=== PATIENT | female | born 1945 | race Two or more races ===

== ENCOUNTER → 2024-09-03 | Outpatient (CLI) | payer MEDICARE, MEDICAID, SELFPAY ==
--- NOTE | 2024-09-03 13:20 | XR_ITS ---
Examination: Bone densitometry Date and time of exam:September 03, 2024 1049 hours INDICATIONS: Menopause age 36, personal history osteopenia Technique: Lumbar spine and hip total bone mineralization values of an calculated. Peak reference and age match control results have been displayed. Findings: Lumbar spine total bone mineralization is0.868 gm/cm2. This is 1.6 standard deviations below peak reference. This is 1.0 standard deviations above age-matched controls. Hip total bone mineralization is 0.942 gm/cm2 This is 0.2 standard deviations below peak reference. This is 1.8 standard deviations above age-matched controls Impression: There is osteopenia based on lumbar spine measurements. There is normal mineralization based on hip measurements Lumbar mineralization is increased 5.0% compared with February 27, 2020 Hip mineralization is decreased 2.5% compared with February 27, 2020
== END | disposition home or self-care (01) ==
PROVIDERS: PCP Physician Assistant; Referring Provider Physician Assistant; Visit Provider Physician Assistant
DX: M85.88 Other specified disorders of bone density and structure, other site (principal)
CPT/HCPCS: 77080